=== PATIENT | male | born 1970 | race Caucasian/White ===

== ENCOUNTER → 2018-02-08 08:10 | Outpatient (CLI) | payer OTHER, SELFPAY ==
[2018-02-08 08:27] LABS: Basophils # 0.1 K/mm3 (0-0.2); Basophils % 0.7 % (0.1-2.0); Eosinophils # 0.4 K/mm3 (0.0-0.4); Eosinophils % 5.4 % (0.1-12.0); Hematocrit 47.6 % (42.0-52.0); Hemoglobin 16.5 g/dL (14.1-18.0); Lymphocytes # 3.2 K/mm3 (0.7-4.5); Lymphocytes % 42.6 K/mm3 (10-50); Mean Corpuscular HGB Conc 34.6 g/dL (31.8-35.4); Mean Corpuscular Volume 92.4 fl (80-94); Mean Platelet Volume 7.1 fl (7.4-10.4); Monocytes # 0.3 K/mm3 (0.1-1.0); Monocytes % 3.8 % (1.7-9.3); Neutrophils # 3.6 K/mm3 (1.8-7.8); Neutrophils % 47.6 % (37.0-80.0); Platelet Count 270 K/mm3 (142-424); Red Blood Count 5.15 M/mm3 (4.60-6.20); White Blood Count 7.5 K/mm3 (4.8-10.8)
[2018-02-08 09:49] LABS: Alanine Aminotransferase 33 U/L (12-78); Albumin/Globulin Ratio 1.1 (1.1-1.8); Alkaline Phosphatase 123 U/L (46-116); Anion Gap 13.6 mEq/L (5-15); Aspartate Amino Transferase 22 U/L (15-37); Bilirubin,Total 0.4 mg/dL (0.2-1.0); Blood Urea Nitrogen 18 mg/dL (7-18); Calcium 9.7 mg/dL (8.5-10.1); Carbon Dioxide 28 mmol/L (21.0-32.0); Chloride 106 mmol/L (98-107); Chol/HDL Ratio 5.5 (1-3.5); Cholesterol 247 mg/dL (140-200); Creatinine,Serum 1.06 mg/dL (0.70-1.30); Estimated Glomerular Filt Rate 74 ml/min (>60); GFR (African American) 90 ML/MIN (>60); Globulin 3.8 gm/dl (1.3-3.2); Glucose 94 mg/dL (74-106); HDL Cholesterol 45 mg/dL (27-67); LDL Cholesterol 176 mg/dL (0-130); Potassium 4.6 mmoL/L (3.5-5.1); Sodium 143 mmol/L (136-145); T4 (Thyroxine) 4.9 ug/dl (4.7-13.3); Thyroid Stimulating Hormone 1.96 uIU/ml (0.358-3.740); Total Protein,Serum 7.8 gm/dL (6.4-8.2); Triglycerides 128 mg/dL (30-200); VLDL Cholesterol 26 mg/dL (0-40)
[2018-02-09 14:16] LABS: PSA, Free 0.67 ng/mL; Prostate Specific Ag 1.3 ng/mL (0.0-4.0); Vitamin D 25 Hydroxy 41.7 ng/mL (30.0-100.0)
[2018-02-12 04:55] LABS: Testosterone, Total, LC/MS 314.7 ng/dL (264.0-916.0); Testosterone,Free 12.2 pg/mL (6.8-21.5)
== END ==
PROVIDERS: Visit Provider Nurse Practitioner Family
DX: R53.83 Other fatigue (principal)
CPT/HCPCS: 36415; 80053; 80061; 82652; 84153; 84154; 84402; 84403; 84436; 84443; 85025

== ENCOUNTER → 2018-02-26 07:36 | Outpatient (CLI) | payer OTHER, SELFPAY ==
--- NOTE | 2018-02-26 07:38 | US_ITS ---
US abdomen limited HISTORY: Chest pain and upper abdominal pain ORDERING PHYSICIAN: MARIIA Robles PATIENT AGE: 47 years Comparison: None PROCEDURE: Sagittal, transverse and decubitus imaging of the gallbladder was performed. Findings: PANCREAS unremarkable .fair visualization of head body and medial tail of pancreas. GALLBLADDER - minimal debris and sludge sludge noted. No gallstones are evident. Gallbladder wall upper normal thickness and echogenicity.. COMMON DUCT is normal in diameter. LIVER: Unremarkable appearing... No focal lesions. No ductal dilatation. Portal vein normal caliber and direction flow. RIGHT KIDNEY. No hydronephrosis nor mass Modest but adequate size measuring measuring 9 cm length borderline to mild cortical thinning . Is there normal renal function history IMPRESSION: Gallbladder.. No gallstones evident. Minimal sludge and debris at gallbladder. Liver. Unremarkable. Right kidney. . Modest size right kidney with borderline cortical thinning
== END ==
PROVIDERS: PCP Physician Assistant; Visit Provider Physician Assistant
DX: R10.11 Right upper quadrant pain (principal); R07.9 Chest pain, unspecified
CPT/HCPCS: 76705; 93017

== ENCOUNTER → 2018-04-04 12:15 | Outpatient (CLI) | payer OTHER, SELFPAY | PROVIDERS: PCP Emergency Medicine; Visit Provider Nurse Practitioner Family | DX: I51.9 Heart disease, unspecified (principal); R53.83 Other fatigue | CPT/HCPCS: 95806 ==

== ENCOUNTER → 2018-08-17 20:10 | Outpatient (CLI) | payer BC, SELFPAY | PROVIDERS: PCP Physician Assistant; Visit Provider Specialist | DX: G47.30 Sleep apnea, unspecified (principal); I10 Essential (primary) hypertension; R06.83 Snoring; R51 Headache; I25.10 Atherosclerotic heart disease of native coronary artery without angina pectoris | CPT/HCPCS: 95810 ==

== ENCOUNTER 2020-04-29 15:58 | Emergency (ER) | payer BC, SELFPAY ==
[2020-04-29 15:59] VITALS: BP 148/78; PULSE 80; RESP 16; TEMP 36.9; O2SAT 98; BMI 31.5
--- NOTE | 2020-04-29 16:16 | HMH.EDUTC ---
[facility] Disposition Clinical Impression: Exposure to COVID-19 virus Disposition: Home, Self-Care Condition on Discharge: Good Instructions: DI for COVID-19 (Suspected or Confirmed ), Preventing the Spread of Coronavirus Discharge Instructions Additional Instructions: Drink plenty of fluids. Take tylenol for pain or fever. Return if you begin to have difficulty breathing. Follow up with your regular doctor. GO TO THE ER FOR ANY WORSENING SYMPTOMS Prescriptions: Ondansetron [Zofran 4mg ODT] 4 mg PO Q8HP PRN #12 tab.rapdis PRN Reason: Nausea Transmission Status: Received by [id number] Referrals: Milady Louis PA [Primary Care Provider] - Time of Disposition: 16:27 Medical Decision Making - Medical Records Medical records reviewed: No: I reviewed the patient's medical records. - Dinesh Inquiry Pt receiving controlled substance: No Vital Signs: 04/29/20 15:59 04/29/20 16:27 Temperature 98.4 F 98.4 F Temperature Source Oral Oral Pulse Rate 80 Pulse Rate [Right] 80 Respiratory Rate 16 16 Blood Pressure 140/78 Blood Pressure [Right Arm] 148/78 H Blood Pressure Mean [Right Arm] 101 02 Sat by Pulse Oximetry 98 Orders (Tests/Meds): ORDERS Category Date Time Status Covid-19 Nasal PCR Sendout P&C Stat Lab 04/29/20 16:10 Received [facility] HPI - General Stated complaint: covid test Time Seen by Provider: 04/29/20 16:16 Description of Symptoms (Recalled from Triage Doc. by RN): pt request COVID test pt has no symptoms HEENT Symptoms (Recalled from RN notes): No Resp Symptoms (Recalled from RN notes): No Skin Symptoms (Recalled from RN notes): No MS Symptoms (Recalled from RN notes): No Functional Status (Recalled from RN notes): wnl - History of Present Illness Provider Complaint: He is here because his boss at work tested positive for covid-19. He denies any symptoms. - Related Data Previous Rx's Medication Instructions Recorded lisinopril 20 mg tablet 20 mg PO DAILY #90 tab 06/19/19 bisoprolol fumarate 5 mg tablet 5 mg PO DAILY #90 tab 12/17/19 furosemide 20 mg tablet 20 mg PO DAILY #90 tab 12/31/19 aspirin 81 mg tablet,delayed See Rx Instructions .ROUTE 03/04/20 release .COMPLEX #90 tab rosuvastatin 5 mg tablet See Rx Instructions .ROUTE 03/04/20 .COMPLEX #90 tab trazodone 50 mg tablet See Rx Instructions .ROUTE 03/16/20 .COMPLEX #90 tab Ondansetron [Zofran 4mg ODT] 4 mg PO Q8HP PRN #12 tab.rapdis 04/29/20 Allergies Allergy/AdvReac Type Severity Reaction Status Date / Time atorvastatin [From Lipitor] AdvReac Mild myalgia Verified 04/29/20 16:09 - Worker's Comp Is this a Worker's Comp case?: No Is this an [facility] Worker's Comp?: No Is this a [facility] Worker's Comp?: No [facility] History - Hepatitis A Screen Drug use history?: No High risk sexual behaviors?: No History of sexually transmitted infection?: No Currently employed?: No Childcare worker?: No Do you have indoor plumbing?: Yes Do you have electricity?: Yes Attestation statement:: This patient has been screened for Hepatitis A risk factors. I have reviewed the patient's past medical history: Yes Medical History: Reports:: Arrhythmia, Hyperlipidemia, Hypertension, Kidney Stones, Migraine Denies:: Cancer, Deep Vein Thrombosis, Diabetes Mellitus Type 1, Diabetes Mellitus Type 2, Internal Pacemaker, Pulmonary Embolism, Seizures Other Medical History: Reports: Other Other Surgeries: Yes: No Previous Surgery, Cardiac Catheterization, Colonoscopy. No: Pacemaker Amputation: No Fractures: Yes - Social History Smoking Status: Former smoker Tobacco Type: cigarettes # Packs/Day (cigarettes): 1 #Yrs smoked (if former smoker): 30 Alcohol Intake: never Alcohol Intake Frequency:: a few times a month Substance Use Type: denies use Occupational Status: other Household Members: significant other Family Hx:: Heart Attack, Diabetes, Hypertension, Hyperlipidemia Comment: Father - COPD
[2020-04-29 16:27] VITALS: BP 140/78; PULSE 80; RESP 16; TEMP 36.9; O2SAT 98
--- NOTE | 2020-05-01 09:36 | PC.NURSE ---
PATIENT NOTIFIED OF POSITIVE COVID RESULT AT THIS TIME
[2020-05-01 09:52] LABS: Covid-19 Nasal PCR Sendout P&C POSITIVE
== END 2020-04-29 16:28 | disposition home or self-care (01) ==
PROVIDERS: Emergency Provider Nurse Practitioner Family; PCP Physician Assistant
DX: U07.1 COVID-19 (principal); I10 Essential (primary) hypertension; E78.5 Hyperlipidemia, unspecified; Z87.442 Personal history of urinary calculi; Z87.891 Personal history of nicotine dependence; Z79.899 Other long term (current) drug therapy
CPT/HCPCS: 99202; G0463; U0004

== ENCOUNTER → 2021-02-17 15:33 | Outpatient (CLI) | payer BC, SELFPAY ==
[2021-02-17 15:44] LABS: Basophils # 0.2 K/mm3 (0-0.2); Eosinophils # 0.4 K/mm3 (0.0-0.4); Eosinophils % 4.1 % (0.1-12.0); Hematocrit 51.6 % (42.0-52.0); Hemoglobin 17.2 g/dL (14.1-18.0); Lymphocytes # 3.8 K/mm3 (0.7-4.5); Lymphocytes % 41.2 % (10-50); Mean Corpuscular HGB Conc 33.4 g/dL (31.8-35.4); Mean Corpuscular Hemoglobin 32.6 pg (27.0-31.2); Mean Corpuscular Volume 97.7 fl (80-94); Monocytes # 0.4 K/mm3 (0.1-1.0); Monocytes % 4.6 % (1.7-9.3); Neutrophils # 4.4 K/mm3 (1.8-7.8); Neutrophils % 48.3 % (37.0-80.0); Platelet Count 344 K/mm3 (142-424); Red Blood Count 5.29 M/mm3 (4.60-6.20); Red Cell Distribution Width 13.5 % (11.5-17.5); White Blood Count 9.2 K/mm3 (4.8-10.8)
[2021-02-17 16:04] LABS: Alanine Aminotransferase 45 U/L (12-78); Albumin Level 4.8 g/dl (3.5-5.0); Albumin/Globulin Ratio 1.5 (1.1-1.8); Alkaline Phosphatase 121 U/L (38-126); Anion Gap 15.6 mEq/L (5-15); Aspartate Amino Transferase 43 U/L (17-59); Bilirubin,Total 0.5 mg/dl (0.2-1.3); Blood Urea Nitrogen 15 mg/dl (9-20); Calcium 10.5 mg/dl (8.4-10.2); Carbon Dioxide 26 mmol/L (22.0-30.0); Chloride 103 mmol/L (98-107); Chol/HDL Ratio 4.4 (1-3.5); Cholesterol 180 mg/dl (140-200); Estimated Glomerular Filt Rate 102 ml/min (>60); GFR (African American) 123 ML/MIN (>60); Globulin 3.1 g/dL (1.3-3.2); Glucose 93 mg/dl (74-100); HDL Cholesterol 41 mg/dl (40-60); Potassium 4.6 mmoL/L (3.5-5.1); Sodium 140 mmol/L (136-145); Total Protein,Serum 7.9 g/dl (6.3-8.2); Triglycerides 181 mg/dl (30-150); VLDL Cholesterol 36 mg/dL (0-40)
[2021-02-17 16:14] LABS: Direct LDL Cholesterol 103.51 mg/dL (100-129)
[2021-02-17 16:32] LABS: Prostate Specific Ag Screen 1.6 ng/ml (0.0-4.0); Thyroid Stimulating Hormone 1.57 uIU/mL (0.465-4.68)
[2021-02-17 16:40] LABS: Hemoglobin A1C 5.7 % (4.0-6.0)
[2021-02-17 17:06] LABS: Vitamin B12 304 pg/mL (239-931)
== END ==
PROVIDERS: Visit Provider Physician Assistant
DX: I10 Essential (primary) hypertension (principal); E78.2 Mixed hyperlipidemia; M79.10 Myalgia, unspecified site; M79.671 Pain in right foot; M79.672 Pain in left foot; Z12.5 Encounter for screening for malignant neoplasm of prostate
CPT/HCPCS: 80053; 80061; 82607; 82746; 83036; 84443; 85025; G0103

== ENCOUNTER → 2021-11-29 14:49 | Outpatient (CLI) | payer BC, SELFPAY ==
[2021-11-29 16:09] LABS: Basophils # 0.1 K/mm3 (0-0.2); Basophils % 0.8 % (0.1-2.0); Eosinophils # 0.4 K/mm3 (0.0-0.4); Eosinophils % 4.3 % (0.1-12.0); Hematocrit 48.7 % (42.0-52.0); Hemoglobin 15.5 g/dL (14.1-18.0); Lymphocytes # 3.5 K/mm3 (0.7-4.5); Lymphocytes % 38.7 % (10-50); Mean Corpuscular HGB Conc 31.9 g/dL (31.8-35.4); Mean Corpuscular Hemoglobin 32.4 pg (27.0-31.2); Mean Corpuscular Volume 101.7 fl (80-94); Mean Platelet Volume 8.4 fl (7.4-10.4); Monocytes # 0.6 K/mm3 (0.1-1.0); Monocytes % 6.4 % (1.7-9.3); Neutrophils # 4.5 K/mm3 (1.8-7.8); Neutrophils % 49.8 % (37.0-80.0); Platelet Count 302 K/mm3 (142-424); Red Blood Count 4.79 M/mm3 (4.60-6.20); Red Cell Distribution Width 13.8 % (11.5-17.5)
[2021-11-29 17:29] LABS: Alanine Aminotransferase 37 U/L (12-78); Albumin Level 4.3 g/dl (3.5-5.0); Albumin/Globulin Ratio 1.4 (1.1-1.8); Alkaline Phosphatase 123 U/L (38-126); Anion Gap 11.8 mEq/L (5-15); Aspartate Amino Transferase 36 U/L (17-59); Blood Urea Nitrogen 11 mg/dl (9-20); Calcium 9.2 mg/dl (8.4-10.2); Carbon Dioxide 26 mmol/L (22.0-30.0); Chloride 105 mmol/L (98-107); Cholesterol 252 mg/dl (140-200); Estimated Glomerular Filt Rate 88 ml/min (>60); GFR (African American) 107 ML/MIN (>60); Glucose 67 mg/dl (74-100); HDL Cholesterol 36 mg/dl (40-60); Potassium 3.8 mmoL/L (3.5-5.1); Sodium 139 mmol/L (136-145); Total Protein,Serum 7.3 g/dl (6.3-8.2); Triglycerides 263 mg/dl (30-150); VLDL Cholesterol 53 mg/dL (0-40)
[2021-11-29 17:44] LABS: 25-OH Vitamin D, Total 53.4 ng/mL (30-100)
[2021-11-29 17:59] LABS: Thyroid Stimulating Hormone 1.74 uIU/mL (0.465-4.68)
[2021-11-29 18:02] LABS: Bilirubin,Total < 0.1 mg/dl (0.2-1.3)
[2021-11-29 18:18] LABS: Vitamin B12 467 pg/mL (239-931)
[2021-12-01 13:46] LABS: Direct LDL Cholesterol 145 mg/dL (100-129)
== END ==
PROVIDERS: PCP Physician Assistant; Visit Provider Physician Assistant
DX: R06.09 Other forms of dyspnea (principal); R53.83 Other fatigue; I11.9 Hypertensive heart disease without heart failure; E78.2 Mixed hyperlipidemia; E66.3 Overweight; Z68.32 Body mass index [BMI] 32.0-32.9, adult; Z87.891 Personal history of nicotine dependence; Z79.899 Other long term (current) drug therapy
CPT/HCPCS: 36415; 80053; 80061; 82306; 82607; 84443; 85025

== ENCOUNTER → 2021-12-06 07:15 | Outpatient (CLI) | payer BC, SELFPAY ==
--- NOTE | 2021-12-06 | CA_ITS ---
APPROVED REPORT Exam: Exercise Treadmill Technologist: Mendy Christy, Ht: 5 ft 11 in Wt: 230 lbs BSA: 2.24 m2 HR: 52 bpm BP: 121/76 mmHg Medical History Medical History: HTN, Hyperlipidemia Medications: Lisinopril,,,,, Omeprazole,,,,, Aspirin,,,,, Trazadone,,,,, Carafate,,,,, BisOPROLOL,,,,, Furosemide,,,,, Cardiac Risk Factors: HTN, Hyperlipidemia, FHX of CAD, Smoking Stress Test Details Test: Dakota HR Resting HR: 67 bpm Max Heart Rate (APMHR): 167.163015 bpm Max HR Achieved: 155 bpm Target HR (85% APMHR): 141.937515 bpm % of APMHR: 92.81 Recovery HR: 134 bpm BP Resting BP: 130/81 mmHg Max BP: 168/70 mmHg Recovery BP: 160.0/80.0 mmHg ECG Clinical Exercise duration: 08:08 min Highest Stage Achieved: Exercise capacity: 10.1 METs Stress ECG Conclusion During dakota protocol pt experinced SOA. Frequent PAC/PVC noted. <1.5mm ST changes. Test Summary Stage 3 02:00 14.0 3.4 155 . 163/ 95 . . REST . . . . . . . Standing REST 16:28 0.0 0.0 67 . 130/ 81 . . Stage 1 01:00 10.0 1.7 94 . . . . Stage 1 02:00 10.0 1.7 101 . . . . Stage 1 03:00 10.0 1.7 105 . 140/ 90 . . Stage 2 01:00 12.0 2.5 119 . . . . Stage 2 02:00 12.0 2.5 132 . . . . Stage 2 03:00 12.0 2.5 134 . 152/ 90 . . Stage 3 01:00 14.0 3.4 126 . . . . Stage 3 02:00 14.0 3.4 155 . 163/ 95 . . Stage 3 02:08 14.0 3.4 155 . 163/ 95 . Stop exercise at 08:08 RECOVERY 01:00 0.0 0.0 129 . 160/ 80 . . RECOVERY 02:00 0.0 0.0 96 . 160/ 80 . . RECOVERY 03:00 0.0 0.0 93 . 168/ 70 . . RECOVERY 03:20 0.0 0.0 90 . 148/ 81 . . Electronically signed by : Akil Calvin MD 12/06/2021 18:11:20
--- NOTE | 2021-12-06 07:16 | NM_ITS ---
APPROVED REPORT Exam: Nuclear Stress Test Indication: Chest pain, SOB, CAD, HTN, High cholesterol, Former tobacco use, Family history Patient Location: Outpatient Stress Tech: Mendy Christy CO Tech:Chely Gould, ARRT, RT (R)(N) Ht: 5 ft 11 in Wt: 230 lbs HR: 67 bpm BP: 130/81 mmHg BSA: 2.24 m2 TID: 1.14 BMI: 32.0 History: Chest pain, SOB, CAD, HTN, High cholesterol, Former tobacco use, Family history Procedure: Patient exercised on Jean Carlos protocol 8:08 minutes and sec, resting heart rate 67 bpm, resting blood pressure 130/81 mmHg, with exercise maximum heart rate achived was 155 bpm which is 93 % of the maximum predicted heart rate and blood pressure was 168/70 mmHg. Test was stopped due to sob. Patient denied any complaint of chest pain. Patient has good exercise capacity, achieved 10.1 METs of workload on treadmill, the blood pressure response to exercise was Adequate. Electrocardiogram Resting electrocardiogram showed sinus rhythm, with exercise there is less than 1.[address] segment depression noted from the baseline EKG. The EKG portion of the exercise Myoview is negative for ischemia. Cardiac Stress and Resting SPECT Images: Cardiac Stress and Resting SPECT images were obtained using technetium 99m Myoview 32.7 mCi stress and 10.26 mCi at rest. Gated SPECT analysis of segmental wall motion and calculation of the ejection fraction also done, prone images were also obtained. Cardiac stress and rest SPECT images show uniform myocardial activity without segmental perfusion abnormality, computer derived ejection fraction is 50% with no regional wall motion abnormality, right ventricle is normal size and contractility. Conclusion: 1. The EKG portion of the exercise Myoview is negative for ischemia, patient has good exercise capacity achieved 10.1 METs of workload on treadmill, the blood pressure response to exercise was adequate, there was no exercise-induced chest discomfort. 2. No scintigraphic evidence of reversible ischemia seen, computer derived ejection fraction is 50% with no regional wall motion abnormality, right ventricle is normal size and contractility. 3. Normal exercise Myoview study. Electronically signed by : Akil Calvin MD 12/06/2021 18:14:04
--- NOTE | 2021-12-06 09:04 | CA_ITS ---
APPROVED REPORT EXAM: Comprehensive 2D, Doppler, and color-flow Echocardiogram Senior Web Engineer: Wanda Casiano CRT Ht: 5 ft 11 in Wt: 230lbs BSA: 2.24 BP: 127/69 mmHg Indications: Chest Pain, Shortness of Breath, Obesity, CAD, Hyperlipidemia 2D Dimensions LVOT 1.88 cm (M/F) 1.5-2.5 LA Volume 23.50 mL LA Volume Index 10.50 mL/m2 (M/F) 16-34 M-Mode Dimensions RVDd 3.36 cm (0.9-2.6) LA Diam 3.36 cm (1.9-4.0) LVDd 4.32 cm (3.5-5.7) Ao Diam 4.04 cm (2.0-3.7) LVDs 2.60 cm (3.5-5.7) IVSd 1.16 cm (0.6-1.1) PWd 1.16 cm (0.6-1.1) EF (Teich) 70.70% FS 39.80% EDV (Teich) 84.00 mL TAPSE 2.65 (<1.7) ESV (Teich) 24.60 mL LV Diastology E Decel Time 183.00 (160-240 msec) E/A Ratio 1.13 Aortic Valve AO Peak GR. 5.70 mmHg Mitral Valve MV A Velocity 60.00 (40-130 cm/s) E/A Ratio 1.13 MV Decel. Time 183.00 (160-240 ms) Pulmonary Valve PV Peak Velocity 88.00 (50-150 cm/s) Tricuspid Valve TR P. Velocity 251.00 cm/s RAP Estimate 10.00 mmHg RVSP 35.20 mmHg Left Ventricle Technically difficult study because of the patient factors and poor acoustic windows, left atrium normal size left ventricle is normal size, there is no concentric left ventricular hypertrophy, estimated ejection fraction 55% with no regional wall motion abnormality, diastolic parameters are inconclusive. Right Ventricle Right atrium and right ventricle are relatively normal size and function. Aortic Valve Aortic valve is grossly normal, there is no aortic stenosis aortic insufficiency. Mitral Valve Mitral valve is grossly normal, there is trace mitral regurgitation. Tricuspid Valve Tricuspid valve grossly normal, there is trace tricuspid regurgitation, tricuspid regurgitation jet velocity is inadequate for calculation of the right ventricular systolic pressure. Pulmonic Valve Pulmonic valve is poorly visualized. Great Vessels Aortic root is normal size. Inferior vena cava is poorly visualized. Pericardium No significant pericardial effusion noted. Conclusion 1. Technically difficult study because of the patient factors and poor acoustic windows. 2. Normal left ventricular size preserved left ventricular systolic function, estimated ejection fraction 55% with no regional wall motion abnormality, diastolic parameters are inconclusive. 3. Trace mitral and tricuspid regurgitation. 4. No significant pericardial effusion noted. 5. Inferior vena cava is poorly visualized. Electronically signed by : Akil Calvin MD 12/06/2021 20:31:59
--- NOTE | 2021-12-06 09:34 | HMH.ITSHM ---
Current Home Medications as stated by this patient Yamil Montalvo or screening representative. []TRAZODONE SUCRALFATE OMEPRAZOLE LISINOPRIL FUROSEMIDE BUSPIRONE BISOPROLOL ASA
== END ==
LOC: RAD 07:16
PROVIDERS: PCP Physician Assistant; Visit Provider Nurse Practitioner
DX: R06.09 Other forms of dyspnea (principal); I25.10 Atherosclerotic heart disease of native coronary artery without angina pectoris; I11.9 Hypertensive heart disease without heart failure; E78.2 Mixed hyperlipidemia; G47.33 Obstructive sleep apnea (adult) (pediatric); Z87.891 Personal history of nicotine dependence
CPT/HCPCS: 78452; 93017; 93306; A9502

== ENCOUNTER → 2023-01-04 23:14 | Outpatient (CLI) | payer BC, SELFPAY ==
[2023-01-04 20:13] LABS: Alanine Aminotransferase 41 U/L (12-78); Albumin Level 4.7 g/dl (3.5-5.0); Albumin/Globulin Ratio 1.3 (1.1-1.8); Alkaline Phosphatase 126 U/L (38-126); Anion Gap 15.6 mEq/L (5-15); Aspartate Amino Transferase 48 U/L (17-59); Bilirubin,Total 0.6 mg/dl (0.2-1.3); Blood Urea Nitrogen 15 mg/dl (9-20); Carbon Dioxide 26 mmol/L (22.0-30.0); Chloride 103 mmol/L (98-107); Chol/HDL Ratio 7.7 (1-3.5); Cholesterol 255 mg/dl (140-200); Estimated Glomerular Filt Rate 88 ml/min (>60); GFR (African American) 106 ML/MIN (>60); Globulin 3.7 g/dL (1.3-3.2); Glucose 89 mg/dl (74-100); HDL Cholesterol 33 mg/dl (40-60); Potassium 4.6 mmoL/L (3.5-5.1); Sodium 140 mmol/L (136-145); Total Protein,Serum 8.4 g/dl (6.3-8.2); Triglycerides 230 mg/dl (30-150); VLDL Cholesterol 46 mg/dL (0-40)
[2023-01-04 20:23] LABS: Direct LDL Cholesterol 154.53 mg/dL (100-129)
[2023-01-04 20:30] LABS: 25-OH Vitamin D, Total 48.1 ng/mL (30-100)
[2023-01-04 20:34] LABS: Basophils # 0.1 K/mm3 (0-0.2); Basophils % 0.5 % (0.1-2.0); Eosinophils # 0.3 K/mm3 (0.0-0.4); Eosinophils % 3.5 % (0.1-12.0); Hematocrit 53.1 % (42.0-52.0); Hemoglobin 16.7 g/dL (14.1-18.0); Lymphocytes # 3.3 K/mm3 (0.7-4.5); Lymphocytes % 35.7 % (10-50); Mean Corpuscular HGB Conc 31.4 g/dL (31.8-35.4); Mean Corpuscular Hemoglobin 30.9 pg (27.0-31.2); Mean Corpuscular Volume 98.5 fl (80-94); Mean Platelet Volume 9.9 fl (7.4-10.4); Monocytes # 0.6 K/mm3 (0.1-1.0); Monocytes % 6.2 % (1.7-9.3); Neutrophils % 54.1 % (37.0-80.0); Platelet Count 302 K/mm3 (142-424); Red Blood Count 5.39 M/mm3 (4.60-6.20); Red Cell Distribution Width 13.7 % (11.5-17.5); White Blood Count 9.3 K/mm3 (4.8-10.8)
[2023-01-04 20:43] LABS: Prostate Specific Ag Screen 1.3 ng/ml (0.0-4.0); Thyroid Stimulating Hormone 1.01 uIU/mL (0.465-4.68)
[2023-01-04 21:02] LABS: Vitamin B12 380 pg/mL (239-931)
== END ==
LOC: LAB.DROPOF 23:14
PROVIDERS: PCP Physician Assistant; Visit Provider Physician Assistant
DX: Z00.00 Encounter for general adult medical examination without abnormal findings (principal); I11.9 Hypertensive heart disease without heart failure; I25.10 Atherosclerotic heart disease of native coronary artery without angina pectoris; E78.5 Hyperlipidemia, unspecified; G47.33 Obstructive sleep apnea (adult) (pediatric); E66.9 Obesity, unspecified; Z68.32 Body mass index [BMI] 32.0-32.9, adult; Z12.5 Encounter for screening for malignant neoplasm of prostate
CPT/HCPCS: 80053; 80061; 82306; 82607; 84443; 85025; G0103

== ENCOUNTER 2025-01-08 04:02 | Emergency (ER) | payer BC, SELFPAY ==
[2025-01-08] VITALS (7 sets, daily range): BP systolic 106–182; BP diastolic 70–95; PULSE 59–92; RESP 16; TEMP 36.5–36.8; O2SAT 92–96; BMI 33.5
--- NOTE | 2025-01-08 04:13 | CT_ITS ---
PROCEDURE INFORMATION: Exam: CT Abdomen And Pelvis With Contrast Exam date and time: 01/08/2025 4:52 AM Age: 54 years old Clinical indication: Abdominal pain; Flank; Left; Additional info: Left flank pain TECHNIQUE: Imaging protocol: Computed tomography of the abdomen and pelvis with contrast. Radiation optimization: All CT scans at this facility use at least one of these dose optimization techniques: automated exposure control; mA and/or kV adjustment per patient size (includes targeted exams where dose is matched to clinical indication); or iterative reconstruction. Contrast material: ISOVUE; Contrast volume: 75 ml; Contrast route: IV; COMPARISON: US - [facility] US abdomen limited 02/26/2018 7:48 AM FINDINGS: Liver: Normal. No mass. Gallbladder and biliary ducts: Normal. No calcified stones. No ductal dilation. Pancreas: Normal. No ductal dilation. Spleen: Normal. No splenomegaly. Adrenal glands: 4 mm probable left adrenal adenoma requiring no specific follow-up. Kidneys and ureters: Minimal left hydroureter without hydronephrosis. This is believed to be secondary to a 1 mm stone that now lies dependent within the bladder image 117 of series 3. Right kidney normal. Stomach and bowel: Unremarkable. No obstruction. No mucosal thickening. Appendix: No evidence of appendicitis. Intraperitoneal space: Unremarkable. No free air. No significant fluid collection. Vasculature: Unremarkable. No abdominal aortic aneurysm. Lymph nodes: Unremarkable. No enlarged lymph nodes. Urinary bladder: 1 mm dependent stone. Reproductive: Unremarkable as visualized. Bones/joints: Unremarkable. No acute fracture. Soft tissues: Umbilical hernia containing fat. IMPRESSION: 1. Minimal left hydroureter without hydronephrosis. This is believed to be secondary to a 1 mm stone that now lies dependent within the bladder image 117 of series 3. COMMENTS: Consistent with the [employer]'s Incidental Findings Committee white paper (J Am Doyle Radiol 2017): Any incidental adrenal lesion less than 1 cm is likely benign. No follow-up imaging is recommended for these lesions per consensus recommendations based on imaging criteria. Further lab evaluation could be pursued if warranted based on clinical findings.
[2025-01-08 04:25] LABS: Microscopic, Urine URINE MICROSCOPIC (MICROSCOPIC)
[2025-01-08 04:26] LABS: Hematocrit 46.7 % (42.0-52.0); Hemoglobin 15.9 g/dL (14.1-18.0); Immature Granulocytes % 0.3 %; Mean Corpuscular HGB Conc 34.0 g/dL (31.8-35.4); Mean Corpuscular Hemoglobin 31.0 pg (27.0-31.2); Mean Corpuscular Volume 91.0 fl (80-94); Nucleated Red Blood Cells % 0 %; Platelet Count 275 K/mm3 (142-424); Red Blood Count 5.13 M/mm3 (4.60-6.20); Red Cell Distribution Width-SD 44.9 fL; White Blood Count 9.3 K/mm3 (4.8-10.8)
[2025-01-08] MEDS: ONDANSETRON 4MG/2ML VIAL 4 MG IV (04:28)
[2025-01-08] MEDS: KETOROLAC 30MG/ML VIAL 30 MG IV (04:30)
[2025-01-08] MEDS: MORPHINE 4MG/ML SYRINGE 4 MG IV (04:30)
[2025-01-08] MEDS: ACETAMINOPHEN 500MG TAB 1000 MG PO (04:32)
--- NOTE | 2025-01-08 04:32 | [facility].EDGENADL ---
Discharge Plan Disposition Patient Disposition: Home, Self-Care Condition: Good Prescriptions Prescriptions: New ondansetron HCl 4 mg tablet 4 mg PO Q8H PRN (Reason: nausea and vomiting) 5 Days Qty: 30 0RF No Action aspirin 81 mg tablet,delayed release (DR/EC) See Rx Instructions .ROUTE .COMPLEX Qty: 27 0RF Dose Instruction: Take 1 tablet by mouth once daily Rx Instructions: Take 1 tablet by mouth once daily fenofibrate nanocrystallized [Tricor] 145 mg tablet 145 mg PO DAILY Qty: 90 3RF lisinopril 20 mg tablet See Rx Instructions .ROUTE .COMPLEX Qty: 90 0RF Dose Instruction: Take 1 tablet by mouth once daily Rx Instructions: Take 1 tablet by mouth once daily furosemide 20 mg tablet See Rx Instructions .ROUTE .COMPLEX Qty: 90 0RF Dose Instruction: Take 1 tablet by mouth once daily Rx Instructions: Take 1 tablet by mouth once daily sucralfate 1 gram tablet See Rx Instructions .ROUTE .COMPLEX Qty: 90 0RF Dose Instruction: TAKE ONE TABLET BY MOUTH 3 TIMES A DAY Rx Instructions: TAKE ONE TABLET BY MOUTH 3 TIMES A DAY trazodone 50 mg tablet See Rx Instructions .ROUTE .COMPLEX Qty: 90 0RF Dose Instruction: TAKE 1 TABLET BY MOUTH AT BEDTIME Rx Instructions: TAKE 1 TABLET BY MOUTH AT BEDTIME sertraline 100 mg tablet See Rx Instructions .ROUTE .COMPLEX Qty: 90 0RF Dose Instruction: Take 1 tablet by mouth once daily Rx Instructions: Take 1 tablet by mouth once daily bisoprolol fumarate 5 mg tablet See Rx Instructions .ROUTE .COMPLEX Qty: 90 0RF Dose Instruction: Take 1 tablet by mouth once daily Rx Instructions: Take 1 tablet by mouth once daily omeprazole 40 mg capsule,delayed release(DR/EC) See Rx Instructions .ROUTE .COMPLEX Qty: 90 0RF Dose Instruction: TAKE 1 CAPSULE BY MOUTH ONCE DAILY . SWALLOW WHOLE, DO NOT CRUSH, CHEW, DISSOLVE, CUT OR BREAK. Rx Instructions: TAKE 1 CAPSULE BY MOUTH ONCE DAILY . SWALLOW WHOLE, DO NOT CRUSH, CHEW, DISSOLVE, CUT OR BREAK. Referrals Follow up/Referrals: Milady Louis PA [Primary Care Provider, Medical] - See instructions Activity Restrictions/Add. Instructions Additional Instructions/Restrictions: Please follow-up with your primary care provider. Please return to the emergency department if you develop any new or worsening symptoms or become concerned for your health. Clinical Impressions Clinical Impression: Hydroureter Stand Alone Forms Stand Alone Forms: Work/School Release Instructions Patient Instructions: DI for Acute Abdominal Pain Print Language Print Language: Romansh Discharge ED Provider: Selvin Reaves General Adult HPI General Chief complaint: Abdominal Pain Stated complaint: abd pain Time Seen by Provider: 01/08/25 04:05 Mode of Arrival: Ambulatory Description of Symptoms (Recalled from ER Triage Doc. by RN): Pt presents with L abdominal/flank pain that started around 1am this morning. Pt has known history of kidney stones and stated that this feels the same last time he was diagnosed with kidney stones. Endorses 9/10 pain, burning with urination. Denies n/v/d History of Present Illness HPI narrative: 54-year-old male with history of kidney stone, pretension and obesity presents for left flank pain. He reports pain started a couple of hours ago. Denies significant nausea or vomiting. He reports that he feels the same way as when he had his last kidney stone. He denies any fever or dysuria. Related Data Previous Rx's ?Medication ?Instructions ?Recorded aspirin 81 mg tablet,delayed See Rx Instructions .Route 03/07/22 release .COMPLEX #27 tabs fenofibrate nanocrystallized 145 145 mg PO DAILY #90 tabs 01/06/23 mg tablet (Tricor) lisinopril 20 mg tablet See Rx Instructions .Route 11/27/23 .COMPLEX #90 tabs furosemide 20 mg tablet See Rx Instructions .Route 01/04/24 .COMPLEX #90 tabs sucralfate 1 gram tablet See Rx Instructions .Route 01/11/24 .COMPLEX #90 tabs bisoprolol fumarate 5 mg tablet See Rx Instructions .Route 01/17/24 .COMPLEX #90 tabs omeprazole 40 mg capsule,delayed See Rx Instructions .Route 01/17/24 release .COMPLEX #90 caps sertraline 100 mg tablet See Rx Instructions .Route 01/17/24 .COMPLEX #90 tabs trazodone 50 mg tablet See Rx Instructions .Route 01/17/24 .COMPLEX #90 tabs ondansetron HCl 4 mg tablet 4 mg PO Q8H PRN nausea and 01/08/25 vomiting 5 days #30 tabs Allergies Allergy/AdvReac Type Severity Reaction Status Date / Time rosuvastatin AdvReac Intermediate myalgias Verified 01/04/23 09:24 atorvastatin (From Lipitor) AdvReac Mild myalgia Verified 01/04/23 09:24 [facility] Disclaimer: The information contained in this section may have been updated after the patient was seen, as this information can be updated by other users. Medical History CAD (coronary artery disease) Daytime sleepiness Diastolic dysfunction Fatigue HTN (hypertension) Hyperlipidemia Insomnia RAUDEL (obstructive sleep apnea) Statin intolerance Social History Smoking Status: Never smoker alcohol intake: never substance use type: denies use current occupational status: other Travel in the last 8 weeks?: Inside the [place] household members: significant other Have you lived/traveled outside [place] in past 30 days?: No Contact w/someone who lives/traveled outside [place] past 30 days?: No Exposure to someone with infectious disease in past 14 days?: No Do you have a fever (greater than 100.4 F or 38 C)?: No Have you tested positive for COVID-19?: No Exposed to someone with COVID-19 in past 14 days?: No Do you have a sore throat?: No Do you have a cough?: No Do you have any weakness?: No Do you have any diarrhea?: No Are you experiencing any unusual bleeding?: No Do you have any muscle aches/pain?: No Do you have any abdominal pain?: Yes Are you experiencing loss of taste or smell?: No Other Medical History Have you received the Flu Vaccine for this season: Yes Have you received the Pneumonia Vaccine: No ROS Obtained: Yes All systems reviewed & no additional complaints except as documented Physical Exam General General appearance: alert and in no apparent distress Head Head exam: atraumatic and normocephalic Eye Eye exam: Present normal appearance, PERRL and EOMI ENT ENT exam: Present normal oropharynx and normal external ear exam Neck Neck exam: Present normal inspection and full ROM Chest Chest inspection: Present normal inspection and symmetric chest wall rise; Absent tenderness Respiratory Respiratory exam: Present normal lung sounds bilaterally; Absent respiratory distress Cardiovascular Cardiovascular exam: Present regular rate and normal rhythm Abdominal Exam Abdominal exam: Present soft; Absent distention, tenderness or guarding Extremities Exam Extremities exam: Present normal inspection; Absent edema or joint swelling Back Exam Back exam: Present normal inspection and CVA tenderness (L) Neurological Exam Neurological exam: Present alert and oriented X3; Absent motor sensory deficit Psychiatric Psychiatric exam: Present normal affect and normal mood Skin Skin exam: Present warm, dry and normal color Lymphatic Lymphatic Findings: no adenopathy Medical Decision Making Medical Records Medical records reviewed: Yes I reviewed the patient's medical records. Screening: Per USPSTF and CDC recommendations, given the prevalence of disease in our region, it is our hospital?s policy to screen for HIV and viral Hepatitis for all patients aged 18 and over and those with ongoing risk factors. Dinesh Inquiry Pt receiving controlled substance: No Dinesh was queried for this patient: No Vital Signs: 01/08/25 04:03 01/08/25 04:25 01/08/25 04:30 Temperature 97.7 F Temperature Source Oral Pulse Rate 66 60 Pulse Rate [Left Radial] 59 L Respiratory Rate 16 Blood Pressure Blood Pressure [Right arm\] 182/95 H Blood Pressure Mean Blood Pressure Mean [Right arm\] 124 Blood Pressure Source [Right arm\] Automatic Cuff Blood Pressure Position [Right arm\] Sitting 02 Sat by Pulse Oximetry 96 93 L 92 L Oxygen Delivery Method Room Air 01/08/25 04:31 01/08/25 04:31 01/08/25 04:55 Temperature Temperature Source Pulse Rate 63 69 Pulse Rate [Left Radial] Respiratory Rate Blood Pressure 127/72 Blood Pressure [Right arm\] Blood Pressure Mean 90 Blood Pressure Mean [Right arm\] Blood Pressure Source [Right arm\] Blood Pressure Position [Right arm\] 02 Sat by Pulse Oximetry 94 L 92 L Oxygen Delivery Method 01/08/25 05:00 01/08/25 05:00 01/08/25 05:05 Temperature 98.3 F Temperature Source Oral Pulse Rate 60 92 H Pulse Rate [Left Radial] Respiratory Rate 16 Blood Pressure 106/70 L 106/70 L Blood Pressure [Right arm\] Blood Pressure Mean 82 Blood Pressure Mean [Right arm\] Blood Pressure Source [Right arm\] Blood Pressure Position [Right arm\] 02 Sat by Pulse Oximetry 92 L Oxygen Delivery Method Room Air Lab Data Lab results reviewed: Yes I reviewed the patient's lab results. Lab Results 01/08/25 04:11: Urine Color Yellow, Urine Appearance Clear, Urine pH 6.0, Ur Specific [place] 1.025, Urine Protein Negative, Urine Glucose (UA) Negative, Urine Ketones Negative, Urine Blood 2+ A, Urine Nitrate Negative, Urine Bilirubin 1+ A, Urine Urobilinogen 1.0, Ur Leukocyte Esterase Negative, Urine RBC 5-10, Urine WBC None, Ur Squamous Epith Cells Occasional, Urine Bacteria None 01/08/25 04:20: WBC 9.3, RBC 5.13, Hgb 15.9, Hct 46.7, MCV 91.0, MCH 31.0, MCHC 34.0, RDW 13.3, Plt Count 275, MPV 9.9, Neut % (Auto) 47.0, Lymph % (Auto) 43.0, Gregg % (Auto) 7.5, Eos % (Auto) 1.9, Baso % (Auto) 0.3, Neut # (Auto) 4.4, Lymph # (Auto) 4.0, Gregg # (Auto) 0.7, Eos # (Auto) 0.2, Baso # (Auto) 0.0, Sodium 139, Potassium 4.0, Chloride 100, Carbon Dioxide 28, Anion Gap 15.0, BUN 14, Creatinine 1.00, Estimated Creat Clear 127, Estimated GFR 77, Est GFR ( Amer) 94, Glucose 137 H, Calcium 9.4, Total Bilirubin 0.7, AST 26, ALT 24, Alkaline Phosphatase 156 H, Total Protein 7.7, Albumin 4.5, Globulin 3.2, Albumin/Globulin Ratio 1.4, HCV Ab NICOLE w/Rflx PCR Qn Negative, HIV Ag/Ab Combo Qual Negative 01/08/25 04:20 01/08/25 04:20 Orders (Tests/Meds): ED MEDICATIONS Discontinued Medications Generic Name Dose Route Start Last Admin Trade Name Uli PRN Reason Stop Dose Admin Acetaminophen 1,000 mg 01/08/25 04:13 01/08/25 04:32 Acetaminophen 500mg Tab PO 01/08/25 04:14 1,000 mg ONCE ONE Administration Iopamidol 75 ml 01/08/25 04:56 01/08/25 04:57 Iopamidol-370 (76%);100ml Bottle IV 01/08/25 04:57 75 ml ONCE ONE Administration Ketorolac Tromethamine 30 mg 01/08/25 04:13 01/08/25 04:30 Ketorolac 30mg/Ml Vial IV 01/08/25 04:14 30 mg ONCE ONE Administration Morphine Sulfate 4 mg 01/08/25 04:20 01/08/25 04:30 Morphine 4mg/Ml Syringe IV 01/08/25 04:21 4 mg ONCE ONE Administration Ondansetron HCl 4 mg 01/08/25 04:13 01/08/25 04:28 Ondansetron 4mg/2ml Vial IV 01/08/25 04:14 4 mg ONCE ONE Administration Sodium Chloride 10 ml 01/08/25 04:56 01/08/25 04:57 Sodium Chloride 0.9% 10ml Syr (Rad Only) IV 02/07/25 04:55 10 ml NEEDED PRN Administration Maintain IV Site ORDERS Category Date Time Status CT abdomen pelvis w con Stat Cat Scan 01/08/25 04:13 Completed CBC w/Auto Diff [Complete Blood Count Auto Diff] Stat Lab 01/08/25 04:20 Completed CMP [Comprehensive Metabolic Panel] Stat Lab 01/08/25 04:20 Completed HIV Combo Stat Lab 01/08/25 04:20 Completed Hepatitis C Ab Qual. W/ RFX Stat Lab 01/08/25 04:20 Completed UA [Urinalysis and Microscopic] Stat Lab 01/08/25 04:11 Completed Medical Decision Narrative: 54-year-old male with history of coronary artery disease, pretension, prior stone presents for acute onset sharp left flank pain. History was obtained via interactive discussion with patient, family, chart review. On arrival, patient is [afebrile, hemodynamically stable, satting appropriately, alert, oriented x4, GCS 15], moving all extremities spontaneously. Full physical exam performed and significant for left CVA tenderness Differential includes but is not limited to kidney stone, pyelonephritis, aortic pathology, colitis Patient was given Tylenol Toradol morphine Zofran for symptomatic management and correction of underlying abnormalities. Workup initiated including CBC CMP CT abdomen pelvis with IV contrast urinalysis. On re-evaluation, patient reports symptomatic resolution Laboratory workup independently interpreted by me and significant for 5-10 RBCs, no evidence of UTI.. Imaging independently interpreted by me and significant for mild hydroureter on the left, no evidence of obstructing stone. See radiology read for full review of final results. Given patient history, exam and workup, patient's presentation most likely represents kidney stone that has recently passed. There is no evidence of obstruction within the ureter, though there is some residual hydroureter noted. Patient reports that he feels back to normal. Given this, patient was discharged in stable condition with return precautions.. Procedures Risk/Benefits of Procedure(s) Were Explained: Yes Critical Care Critical Care Time Critical Care Time: No
[2025-01-08 04:34] LABS: Alanine Aminotransferase 24 U/L (12-78); Albumin Level 4.5 g/dl (3.5-5.0); Albumin/Globulin Ratio 1.4 (1.1-1.8); Alkaline Phosphatase 156 U/L (38-126); Anion Gap 15.0 mEq/L (5-15); Aspartate Amino Transferase 26 U/L (17-59); Bilirubin,Total 0.7 mg/dl (0.2-1.3); Blood Urea Nitrogen 14 mg/dl (9-20); Calcium 9.4 mg/dl (8.4-10.2); Carbon Dioxide 28 mmol/L (22.0-30.0); Chloride 100 mmol/L (98-107); Creatinine Clearance Estimated 127 mL/min (50-200); Creatinine,Serum 1.00 mg/dl (0.66-1.25); Estimated Glomerular Filt Rate 77 ml/min (>60); GFR (African American) 94 ML/MIN (>60); Globulin 3.2 g/dL (1.3-3.2); Glucose 137 mg/dl (74-100); Potassium 4.0 mmoL/L (3.5-5.1); Sodium 139 mmol/L (136-145); Total Protein,Serum 7.7 g/dl (6.3-8.2)
[2025-01-08 04:44] LABS: Color,Urine YELLOW (Yellow); Glucose,Urine (UA) Negative (Negative); Ketones,Urine Negative (Negative); Leukocyte Esterase,Urine Negative (Negative); PH,Urine 6.0 (5.0-8.5); Protein,Urine Negative (Negative); Specific Gravity, Urine 1.025 (1.005-1.030); Urobilinogen,Urine 1.0 EU/dl (0.2)
[2025-01-08 04:46] LABS: Bilirubin,Urine 1+ (Negative)
[2025-01-08 04:47] LABS: Squamous Epithelial Cell,Urine Occasional #/hpf (0-5)
[2025-01-08] MEDS: IOPAMIDOL-370 (76%);100ML BOTTLE 75 ML IV (04:57)
[2025-01-08] MEDS: SODIUM CHLORIDE 0.9% 10ML SYR (RAD ONLY) 10 ML IV (04:57)
[2025-01-08 05:27] LABS: Hepatitis C Ab Qual. W/ RFX NEGATIVE (Negative)
== END 2025-01-08 05:18 | disposition home or self-care (01) ==
PROVIDERS: Emergency Provider Emergency Medicine; PCP Physician Assistant
DX: R10.32 Left lower quadrant pain (principal); N13.4 Hydroureter
CPT/HCPCS: 74177; 80053; 81001; 85025; 86803; 87389; 96374; 96375; 99285; J1885; J2270; J2405; Q9967